=== PATIENT | male | born 1940 | race Caucasian/White ===

== ENCOUNTER 2017-12-01 13:37 | Outpatient (CLI) | payer MEDICARE, OTHER ==
[2012-05-20 13:59] VITALS: BP 102/58
[~2017-12-01 13:37] MED LIST: Lidocaine 1% 5ml(IM or SUTURE)(PAIN CLINIC) ONE; TRIAMCINOLONE ACETONID 40MG/ML VIAL ONE; WATER FOR INJECTION,STERILE 100 ML VIAL IJ ONE
--- NOTE | 2017-12-06 16:06 | LUMBAR TFESI ---
SUBJECTIVE: I had the opportunity of following up José Miguel Kennedy today as an outpatient at [facility]. José Miguel is a delightful 77-year-old white male with a history of lumbar radiculitis that I have treated on multiple occasions. 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 He has had recurrent intermittent radicular pain which has responded to L4 transforaminal injections. He suffered a cerebrovascular accident a couple of years ago and he has actually recovered a great deal of his strength but had a fall more recently in the shower and thought to possibly have a hamstring tear with pain in the back and down the right hip similar to what I have seen him for in the past. He complains of pain in the right hip and posterior thigh to the knee with weightbearing. It has caused him to become less ambulatory and to use a wheelchair again more often. PHYSICAL EXAMINATION: General: The patient is well nourished, well developed, and in no apparent distress. Awake, alert, and oriented. HEENT: Pupils are equal, round, and reactive to light and accommodation. Extraocular movements intact. No facial droop. Neck: There is full range of motion of the cervical spine. No evidence of adenopathy. Thyroid is nontender, not enlarged. Carotids are without bruits. Chest: Clear to auscultation bilaterally. Normal chest excursion. Heart: Regular rate and rhythm without murmur. Abdomen: Benign. Normoactive bowel sounds. Motor/sensory: Intact in the upper and lower extremities. Moves all extremities freely. Extremities: Negative straight leg raise. Negative femoral nerve stretch. Negative LE. PROCEDURE: Right L4 transforaminal epidural steroid injection with fluoroscopic guidance. DESCRIPTION OF PROCEDURE: The risks and benefits were discussed with the patient including the risks of infection, bleeding, nerve injury, and headache, as well as the risks of steroid exposure causing hyperglycemia, hypertension, osteoporosis, or increased infectious risk. The patient understood these risks and agreed to proceed. Consent was obtained. The patient was placed in the prone position on the fluoroscopy table with a pillow underneath the abdomen to afford anterior flexion of the lumbar spine. The low back was cleaned and a sterile drape was applied. AP, lateral, and oblique fluoroscopic views were obtained identifying the L4 vertebral body and L4 transverse process. An oblique view of the transverse process and pedicles was obtained. A 23-gauge Quincke tip, 3.5 spinal needle was advanced under direct-beam (barrel view) fluoroscopic guidance until the tip contacted the superior-most aspect of the right L5 superior articulating process. The needle was then directed superiorly and medially a few millimeters towards the intervertebral foramen. A lateral fluoroscopic view was obtained and the needle was advanced into the inferior/anterior aspect of the L4 neural foramen (L4-L5 intervertebral foramen) epidural space. It was verified that there was no aspiration of CSF or blood. Omnipaque 240 myelogram dye was injected through the needle. The dye was noted to course in the desired distribution within the lumbar foramen epidural space. The medication was injected into the epidural space. The stylet was replaced in the needle and the needle was removed from the back. The patient tolerated the procedure well. The back was cleaned and a bandage was applied over the injection site. The patient was monitored for 20 minutes following the procedure. During this time the vital signs remained stable and the patient experienced no adverse sequelae. The patient was discharged home in good condition. ASSESSMENT: 1. Right lower extremity radiculitis. 2. History of lumbar disc protrusion and synovial cyst. 3. Radiculitis and neuritis. PLAN: Right L4 transforaminal epidural steroid injection today with fluoroscopic guidance. FOLLOWUP: Return to clinic if problems develop or worsen. Dr. Yu, thank you very much for allowing me to take part in the care of this nice gentleman. I appreciate the opportunity to take part in the care of your patients. cc: Dr. Bridgette SAVAGE
== END 2017-12-01 13:40 ==
LOC: OUT 13:37
PROVIDERS: ATTEND Anesthesiology Pain Medicine
DX: M54.16 Radiculopathy, lumbar region (principal); M51.16 Intervertebral disc disorders with radiculopathy, lumbar region
CPT/HCPCS: 64483; 99214; G0463; J3301; Q9966

== ENCOUNTER 2017-12-16 21:08 | Emergency (ER) | payer MEDICARE, OTHER ==
--- NOTE | 2017-12-16 21:49 | ED Physician Documentation ---
General Adult - HISTORIAN Historian: patient, spouse - [facility] Chief Complaint: General Adult Further Comments: yes (77 year old male patient presents with complaint of throat pain. Patient reports he got choked on his dinner about 1 hours ago. Spit up a "hunk" of pork steak, c/o "something in there". Patient has been able to swollow his saliva. History of dysphagia related to stroke 10 months ago. Swallow study recommended honey thick liquids; patient is not using Thick it at home.) - ROS CONST: no problems EYES/ENT: none CVS/RESP: none GI/: none MS/SKIN/LYMPH: none NEURO/PSYCH: denies: headache - PAST HX Past History: other (CVA; dysphagia) Allergies/Adverse Reactions: Allergies Allergy/AdvReac Type Severity Reaction Status Date / Time Latex, Natural Rubber Allergy Unknown Uncoded 12/16/17 22:06 - SOCIAL HX Smoking History: non-smoker - FAMILY HX Family History: No - VITAL SIGNS Vital Signs: Vital Signs Temp Pulse Resp BP Pulse Ox 102/58 05/20/12 11:00 - REVIEWED ASSESSMENTS Nursing Assessment Reviewed: Yes Vitals Reviewed: Yes Progress - Progress Progress: Patient able to swollow 2 oz of honey thickened water with no difficulty Extensive time spent discussing recommendation of honey thick liquids with patient and . Verbalized understanding. ED Results Lab/Radiology - Orders Orders: ED Orders Category Date Time Status Further Nursing Orders 1T Care 12/16/17 21:38 Active General Adult Physical Exam - PHYSICAL EXAM GENERAL APPEARANCE: [id number] N EENT: eye inspection normal, ENT inspection normal, pharynx normal, no signs of dehydration, GIOVANY, no nystagmus, TM's nml RESPIRATORY: no resp distress, chest non-tender, breath sounds normal CVS: reg rate & rhythm, heart sounds normal, equal pulses, no murmur, no gallop, PMI nml, no JVD, no friction rub, 24 ABDOMEN: soft, no organomegaly, normal bowel sounds, no abdominal bruit, no distension BACK: normal inspection SKIN: warm/dry, normal color NEURO: oriented X3, motor nml, sensation nml, mood/affect nml Discharge Clincal Impression: Dysphagia Qualifiers: Dysphagia type: unspecified Qualified Code(s): R13.10 - Dysphagia, unspecified Referrals: Bridgette Yu MD [Primary Care Provider] - 2 Days Additional Instructions: There is nothing stuck in your throat. Use "Thick It" at home to reach honey thick consistency for liquids Condition: Stable Disposition: 01 HOME, SELF-CARE Decision to Admit: NO Decision Time: 21:47
[2017-12-16 22:24] VITALS: BP 96/70
== END 2017-12-16 22:00 | disposition home or self-care (01) ==
LOC: ED 21:08
DX: R13.10 Dysphagia, unspecified (principal)
CPT/HCPCS: 99282

== ENCOUNTER 2018-01-26 09:59 | Outpatient (CLI) | payer MEDICARE, OTHER ==
[2012-05-20 13:59] VITALS: BP 102/58
--- NOTE | 2018-01-26 11:57 | PAIN CLINIC PROGRESS NOTES ---
REASON FOR VISIT: I had the opportunity of seeing José Miguel Kennedy today in follow up at [facility]. This is a gentleman with a history of an L4-L5 synovial cyst which has been excised. He had a fall and had recurrent right lower extremity pain. 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 He has been ambulatory and the right leg pain has now resolved following an injection. We discussed the symptoms, the possibilities for underlying cause, and further treatment. At this point, I am not recommending any further injections, as he is doing quite well. 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 Again, I would be reluctant to start him on a memory stabilizing drug or anti-epileptic because of the history of loss of proprioception and falls. He understands. He and his are in agreement, and I will follow him up if his symptoms should worsen or reoccur. ASSESSMENT: Right lower extremity radicular pain, now resolved following a L4 transforaminal injection. FOLLOW UP: Return to clinic if problems develop or worsen. cc: Dr. Bridgette SAVAGE
== END 2018-01-26 10:00 ==
LOC: OUT 09:59
PROVIDERS: ATTEND Anesthesiology Pain Medicine
DX: M54.10 Radiculopathy, site unspecified (principal)
CPT/HCPCS: 99212; G0463